=== PATIENT | male | born 1955 | race Caucasian/White ===

== ENCOUNTER → 2017-01-17 | Outpatient (CLI) | payer OTHER ==
--- NOTE | 2017-01-17 10:08 | PCVCIMAG ---
APPROVED REPORT Study performed: 01/17/2017 08:19:16 EXAM: Comprehensive 2D, Doppler, and color-flow Echocardiogram Patient Location: Echo lab Room #: 2Status: routine BSA: 2.15 HR: 58 bpmBP: 156/92 mmHg Rhythm: NSR Other Information Study Quality: Adequate Indications Chest Pressure CAD Hypertension/HDD S/P PA,STENT,HLP 2D Dimensions LVEF(%): 53.45 (>50%) IVSd: 10.09 (7-11mm)LVOT Diam: 21.52 (18-24mm) LVDd: 54.90 mm PWd: 8.07 (7-11mm)Ascending Ao: 32.41 (22-36mm) LVDs: 39.60 (25-40mm) Left Atrium: 42.30 (27-40mm) Aortic Root: 25.24 mm LV Single Plane 4CH: 53.74 % LV Single Plane 2CH: 53.34 %Valencia's LVEF: 53.54 % Biplane EF: 53.6 % Volumes Left Atrial Volume (Systole) Single Plane 4CH: 73.84 mLSingle Plane 2CH: 86.00 mL Biplane LA Volume: 83.00 mLLA ESV Index: 38.00 mL/m2 Aortic Valve AoV Peak Hector.: 1.43 m/s AO Peak Gr.: 8.19 mmHgLVOT Max P.15 mmHg LVOT Max V: 0.89 m/s PARIS Vmax: 2.26 cm2 Mitral Valve E/A Ratio: 1.1 MV Decel. Time: 251.01 ms MV E Max Hector.: 0.77 m/s MV A Hector.: 0.69 m/s IVRT: 76.12 ms TDI E/Lateral E': 7.70E/Medial E': 12.83 Medial E' Hector.: 0.06 m/s Lateral E' Hector.: 0.10 m/s Pulmonary Valve PV Peak Hector.: 1.29 m/sPV Peak Gr.: 4.26 mmHg Pulmonary Vein P Vein S: 0.73 m/sP Vein A: 0.33 m/s P Vein D: 0.52 m/sP Vein A Dur.: 93.4 msec P Vein S/D Ratio: 1.40 Tricuspid Valve TV Vmax: 0.74 m/s Left Ventricle The left ventricle is normal size. There is normal LV segmental wall motion. There is normal left ventricular wall thickness. Left ventricular systolic function is normal. The left ventricular ejection fraction is within the normal range. LVEF is 50-55%. The left ventricular diastolic function is normal. Right Ventricle The right ventricle is normal size. The right ventricular systolic function is normal. Atria Left atrium is borderline dilated. The right atrium size is normal. Aortic Valve Aortic valve is trileaflet. Aortic valve leaflets are minimally sclerotic but open well. No aortic regurgitation is present. There is no aortic valvular stenosis. Mitral Valve The mitral valve is normal in structure. There is no mitral valve regurgitation noted. No evidence of mitral valve stenosis. Tricuspid Valve The tricuspid valve is normal in structure. No tricuspid regurgitation is seen. Pulmonic Valve The pulmonary valve is normal in structure. There is no pulmonic valvular regurgitation. Great Vessels The aortic root is normal in size. The ascending aorta is normal in size. IVC is normal in size and collapses with >50% inspiration Pericardium There is no pericardial effusion. There is no pleural effusion. <Conclusion> The left ventricle is normal size. LVEF is 50-55%. The left ventricular diastolic function is normal. The right ventricle is normal size. Left atrium is borderline dilated. Aortic valve is trileaflet. Aortic valve leaflets are minimally sclerotic but open well. There is no aortic valvular stenosis. There is no mitral valve regurgitation noted. No tricuspid regurgitation is seen. There is no pericardial effusion.
--- NOTE | 2017-01-17 12:40 | PCVCIMAG ---
APPROVED REPORT Exam: Nuclear Stress Test Indication: Chest pain, Dyspnea on exertion, Patient Location: Out-Patient Stress Nurse: Charline Gipson RN, Tri Alonso RN [place] Tech:TERE HenleyMT Ht: 5 ft 7 in Wt: 230 lbs BSA: 2.15 m2 HR: 64 bpm BP: 180/100 mmHg BMI: 36.0 Rhythm: NSR Medical History Medical History: AGE, HYPERLIPIDEMIA, HTN, CVD, [place] Medications: ASA, Cozaar, Toprol, Livalo Allergies: No known drug allergies Previous Cardiac Procedures: PCI(2007 NSTEMI STENT OM), LAST CATH 2015 Pretest Chest Pain Characteristics: No chest pain Meds Held (24 hrs): Toprol Stress Test Details Stress Test: Exercise stress testing was performed using a Silver protocol. HR Resting HR: 64 bpmMax Heart Rate (APMHR): 158 bpm Max HR Achieved: 144 bpmTarget HR (85% APMHR): 134 bpm % of APMHR: 91 Recovery HR: 73 bpm BP Resting BP: 180/100 mmHg Max BP: 213/98 mmHg ECG Resting ECG: Sinus Rhythm Stress ECG: Sinus Rhythm, PVCs ST Change: Non-ischemic Recovery ECG: Sinus Rhythm Recovery ST Deviation: 1.1 mm Clinical Reason for Termination: Dyspnea, Fatigue Stress Symptoms: Dyspnea Exercise duration: 10 min 16 sec Exercise capacity: 13.4 METs Symptoms resolved during recovery. NM EXAM: Myocardial Perfusion REST/STRESS Imaging Protocol: Rest Tc-99m/Stress Tc-99m 1 day Resting Data Rest SPECT myocardial perfusion imaging was performed in supine position 45 minutes following the intravenous injection of 15.4 mCi of Tc-99m Sestamibi. Time of rest injection: 904 Date: 01/17/2017 Administration Route: IV Administration Site: Right Hand Exercise Stress At peak stress, the patient was injected intravenously with 46.3mCi of Tc-99m Sestamibi. Time of stress injection: 1049 Date: 01/17/2017 Administration Route: IV Administration Site: Right Hand Gated Stress SPECT was performed 45 minutes after stress injection. The images were gated to evaluate regional wall motion and calculate left ventricular ejection fraction. Study Quality Study: Good Study Data Post stress, the left ventricular ejection was 70%.. SSS: 5 SRS: 4 SDS: 1 TID = 0.99. Perfusion There is a small area of mildly reduced uptake in the basal and mid segment of the inferolateral wall which is seen on the stress images as well as the resting images. This area thickens and moves normally and is most consistent with myocardial scar. Wall Motion Normal left ventricular wall motion. Nuclear Conclusion ECG Findings: negative for ischemia Clinical Findings: negative for ischemia This study reveals an incomplete infarct in the mid to basal inferolateral segment. This study is of low probability for inducible ischemia. There is normal global and segmental LV systolic function.
== END | disposition home or self-care (01) ==
LOC: PCVCIMAG 08:20
PROVIDERS: ATTEND Internal Medicine Cardiovascular Disease
DX: I25.10 Atherosclerotic heart disease of native coronary artery without angina pectoris (principal); I10 Essential (primary) hypertension; E78.00 Pure hypercholesterolemia, unspecified; K21.9 Gastro-esophageal reflux disease without esophagitis; R07.9 Chest pain, unspecified; I77.9 Disorder of arteries and arterioles, unspecified; I25.2 Old myocardial infarction; Z79.82 Long term (current) use of aspirin
CPT/HCPCS: 78452; 80061; 93005; 93017; 93306; A9500; G0463